=== PATIENT | male | born 1945 | race Caucasian/White ===

== ENCOUNTER 2018-03-29 07:35 | Emergency (ER) | payer MEDICARE ==
[2018-03-29 07:49] VITALS: BP 149/84
[2018-03-29] MEDS ORDERED: Tetan/Diph/Pertus SYR(Tdap)* 0.5 ML SYR(BOOSTRIX) use SYR IM ONE (08:00)
--- NOTE | 2018-03-29 08:14 | UC ---
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 PATIENT FELL FORWARD AND GLASS BROKE AND HE SUSTAINED SEVERAL LACERATIONS TO HIS RIGHT HAND. ONE LAC AT BASE OF THIRD FINGER PATIENT IS CONCERNED MAY HAVE SOME GLASS IN IT. NOT UTD TETANUS. - History Of Current Complaint Chief Complaint: UCLaceration Stated Complaint: HAND LAC WITH FB IN HAND Time Seen by Provider: 03/29/18 08:00 Hx Obtained From: Patient Laceration Location: Hand - RIGHT Mechanism Of Injury: Sharp Trauma Onset/Duration: Sudden Onset, Lasting Hours, Still Present Severity: Moderate Pain Intensity: 0 Pain Scale Used: 0-10 Numeric Related History: Dominant Hand Right - Allergies/Home Medications Allergies/Adverse Reactions: Allergies Allergy/AdvReac Type Severity Reaction Status Date / Time No Known Allergies Allergy Verified 03/29/18 07:49 PMH/Surg Hx/FS Hx/Imm Hx Previously Healthy: Yes - Surgical History Surgical History: None - Social History Alcohol Use: Daily Alcohol Amount: 1 glass of wine Substance Use Type: None Smoking Status (MU): Never Smoked Tobacco - Immunization History Most Recent Tetanus Shot: unknown Review of Systems Constitutional: Negative Skin: Other - LACERATIONS RIGHT HAND Respiratory: Negative Cardiovascular: Negative Gastrointestinal: Negative Musculoskeletal: Negative All Other Systems Reviewed And Are Negative: Yes Physical Exam Triage Information Reviewed: Yes Appearance: Well-Appearing, No Pain Distress, Well-Nourished Vital Signs: Initial Vital Signs Temp 97.6 F 03/29/18 07:44 Pulse 68 03/29/18 07:44 Resp 16 03/29/18 07:44 BP 149/84 03/29/18 07:44 Pulse Ox 98 03/29/18 07:44 Vital Signs Reviewed: Yes Eyes: Positive: Conjunctiva Clear ENT: Positive: Hearing grossly normal Neck: Positive: Supple Respiratory: Positive: No respiratory distress, No accessory muscle use Cardiovascular: Positive: Pulses Normal Abdomen Description: Positive: Soft Musculoskeletal: Positive: ROM Intact, No Edema Neurological: Positive: Alert Psychological: Positive: Age Appropriate Behavior Skin: Positive: Other - 2CM LINEAR LACERATION RIGHT HAND 1ST [place]. 2CM ANGLED LACERATION BASE OF 3RD FINGER VOLAR SURFACE. SURROUNDING SKIN MACERATED. SPFL LACERATION SECOND FINGER Laceration Repair - Laceration Repair 1 Procedure Summary: 1ST [place] RIGHT HAND Description: Linear Laceration Size After Repair: Length (cm) - 2CM, Width (mm) - 0MM, Depth (mm) - 2MM Modified For Repair: No Type Injection: Local Anesthesia Used: 1.0% Lido Irrigation With Pressure Irrigation Device: Yes Closure Material: Skin Adhesive, SteriStrips 2 Procedure Summary: BASE OF 3RD FINGER RIGHT HAND VOLAR SURFACE Description: Linear - ANGLED Laceration Size After Repair: Length (cm) - 2CM, Width (mm) - 0MM, Depth (mm) - 5MM Modified For Repair: No Anesthesia Used: 1.0% Lido Irrigation With Pressure Irrigation Device: Yes Closure Material: Sutures - 5 SIMPLE INTERRUPTED Closure Method: Single Layer Suture Of: Skin Suture Type: Prolene - 5-0 3 Procedure Summary: 2ND FINGER VOLAR SURFACE OVERLYING MIDDLE PHALANX Description: Linear Laceration Size After Repair: Length (cm) - 0.5CM, Width (mm) - 0MM, Depth (mm) - 2MM Modified For Repair: No Irrigation With Pressure Irrigation Device: Yes Closure Material: Skin Adhesive, SteriStrips Diagnostics - Radiology RIGHT 3RD FINGER Radiology Interpretation Completed By: Radiologist Laceration Course/Dx - Course/Dx Course Of Treatment: XRAY UNREMARKABLE FOR FB OR BONY INJURY. NO FB IDENTIFIED WITH PROBING OF WOUND WITH FORCEPS. LACERATIONS REPAIRED. - Differential Dx - Laceration/Wound Provider Diagnoses: LACERATION REPAIR X 3 RIGHT HAND Discharge - Sign-Out/Discharge Documenting (check all that apply): Patient Departure All imaging exams completed and their final reports reviewed: Yes - Discharge Plan Condition: Stable Disposition: HOME Prescriptions: Cephalexin CAP* [Keflex 500 CAP*] 500 mg PO BID #10 cap Patient Education Materials: Laceration (ED) Referrals: Hellen Stewart MD [Primary Care Provider] - If Needed Additional Instructions: KEEP DRESSINGS IN PLACE AND DRY FOR THE FIRST 24 HRS. THEN YOU MAY REMOVE THE DRESSING AND GENTLY CLEANSE WITH SOAP AND WATER. PAT DRY AND RE-BANDAGE. APPLY THIN LAYER ANTIBIOTIC OINTMENT UNDER BANDAGE FOR FIRST 2 DAYS ONLY. CHANGE BANDAGE DAILY AND NEEDED IF IT BECOMES SOILED OR WET. SEEK FOLLOW-UP IF YOU DEVELOP SPREADING REDNESS OF THE SKIN, PURULENT DRAINAGE, FEVER, INCREASED PAIN OR ANY OTHER CONCERNING SYMPTOMS. RETURN TO HAVE YOUR SUTURES REMOVED IN 10 DAYS THE STERISTRIPS WILL FALL OFF ON THEIR OWN IN THE NEXT 1-2 WEEKS. DO NOT PUT ANY OINTMENT ON TOP OF THEM. DO NOT SUBMERGE IN WATER FOR PROLONGED PERIOD OF TIME. OKAY FOR BRIEF SHOWER AFTER 24 HOURS AND THEN BE SURE TO ALLOW TO DRY COMPLETELY. TAKE THE ANTIBIOTICS PRESCRIBED TO HELP PREVENT INFECTION. NO FOREIGN BODY OR BONY INJURY SEEN ON XRAY TODAY. IF THERE IS ANY GLASS IN YOUR HAND IT SHOULD PUSH IT'S WAY OUT. AGAIN, IF IT STARTS TO LOOK OR FEEL WORSE SEEK FOLLOW-UP. TETANUS IMMUNIZATION GIVEN (TDAP): You have been given an immunization against tetanus. Please record this in your records. In general, a booster is needed only once every 10 years. The tetanus shot protects against tetanus or "lockjaw," which is a complication of certain wound infections (the tetanus shot cannot protect against the actual infection). The immunization site may become warm and red due to local reaction. If this occurs, apply warm compresses and take aspirin or ibuprofen to reduce inflammation and discomfort. Return for evaluation if the reaction becomes severe. - Billing Disposition and Condition Condition: STABLE Disposition: Home
[2018-03-29] MEDS ORDERED: Lidocaine 1%* 5 ML VIAL INJ ONE (08:22)
--- NOTE | 2018-03-29 09:04 | RAD ---
Indication: Foreign body at the base of the finger. 3 views of the right middle finger demonstrates no fracture. No other bone or joint abnormality is identified. IMPRESSION: No obvious radiopaque foreign body is identified.
== END 2018-03-29 09:40 | disposition home or self-care (01) ==
LOC: UCEAST 07:35
DX: S61.411A Laceration without foreign body of right hand, initial encounter (principal); W01.110A Fall on same level from slipping, tripping and stumbling with subsequent striking against sharp glass, initial encounter; Y92.9 Unspecified place or not applicable; Z23 Encounter for immunization
CPT/HCPCS: 12001; 12002; 73140; 90471; 90715; 99202; G0463